=== PATIENT | male | born 1970 | race Caucasian/White ===

== ENCOUNTER 2024-09-15 12:22 | Day surgery (SDC) | payer MEDICARE, SELFPAY ==
[2024-09-15] VITALS (11 sets, daily range): BP systolic 130–180; BP diastolic 87–116; PULSE 44–73; TEMP 36.3–36.6; O2SAT 13–100; BMI 32.5
--- NOTE | 2024-09-15 12:50 | ECG_ITS ---
The [facility] Test Date: 2024-09-15 Pat Name: DIVYA WATSON Department: Room: - Gender: Male [employer] Operator: : 1970 Requested By: Order Number: [id number] Reading MD: HAMLET RECIO Measurements Intervals [place] Rate: 47 P: 61 AL: 201 QRS: 22 QRSD: 91 T: 58 QT: 468 QTc: 417 Interpretive Statements SINUS BRADYCARDIA No previous ECG available for comparison Electronically Signed On 09-15-2024 18:03:00 EDT by HAMLET RECIO
[2024-09-15] MEDS: LACTATED RINGER'S SOLUTION 1,000 ML 50 ML IV (13:28)
[2024-09-15] MEDS: CEFAZOLIN SODIUM/DEXTROSE,ISO 2 GM/50 ML PIGGYBACK IV (14:26)
[2024-09-15] MEDS: IOHEXOL 240 MG/ML - 50 ML VIAL INJ (15:48)
--- NOTE | 2024-09-15 15:59 | XR_ITS ---
The [address] [address] Patient Name: DIVYA WATSON MRN: [id number] date: 1970 Sex: M Assigned Patient Location: [facility] Current Patient Location: Accession/Order Number: [id number] Exam Date: 09/15/2024 14:40 Report Date: 09/19/2024 07:48 At the request of: PRESTON CAPELLAN Procedure: XR urethrogram retrograde EXAM: XR urethrogram retrograde HISTORY: Left renal stone COMPARISON: None. TECHNIQUE: Intraoperative spot fluoroscopic radiograph. FINDINGS: 3 intraoperative spot fluoroscopic images demonstrate retrograde filling of the left ureter and upper collecting system; no appreciable obstructing stone or lesion. Filling defect favoring a stone within an inferior pole calyx. Subsequent placement of a left ureteral stent. XR/XR urethrogram retrograde IMPRESSION: 1. Left ureteral stent placement. Electronically authenticated by: LATRELL VALDIVIA Date: 09/19/2024 07:48
--- NOTE | 2024-09-15 16:03 | PM.URSON ---
Urology Surgery Operative Note Operative Note Procedure Date: 09/15/24 Time Out Performed: yes Pre-op Diagnosis: Left kidney stone Post-op Diagnosis: same as pre-op Procedures performed: Cystoscopy, left retrograde pyelogram, ureteroscopy laser lithotripsy/stone extraction, stent placement Anesthesia: General-LMA (Dr. Gómez ) Primary Surgeon: Frances Rasheed Complications: none Estimated blood loss (mL): 0 Findings: Meatal stenosis requiring gentle manipulation/dilation with cystoscope. Mild bilobar prostatomegaly with elevated bladder neck. L RPG- filling defect at renal pelvis, lower infundibulum, narrow bifid renal pelvis without hydro, mild narrowing at UPJ 1 cm. No hydronephrosis, extravasation or other filling defects at end of case Crystalized 15 x 7 mm renal pelvis/lower calyx stone underwent uncomplicated laser lithotripsy and stone extraction. Remainder of smaller crystals/fragments were dusted Specimens: left kidney stone Drains: 6Fr x 26 cm JJ left ureteral stent on string Incision: none Indications for Procedures: 54 year old male with a history of stones presented in clinic with a new 15x7 mm left renal pelvis stone and severe pain for the past few months. After discussion of risks/benefits of management options, he elected to proceed with cystoscopy, left retrograde pyelogram, ureteroscopy with laser lithotripsy/stone extraction, possible ureteral stent placement under general anesthesia. Risks were discussed including but not limited to bleeding, pain, infection, damage to surrounding structures, inability to treat the stone/place a stent, and need for additional procedures. The patient understands the stent is not permanent and needs to be removed or exchanged within 3 months to prevent encrustation, infection, invasive procedures and/or permanent renal damage. Detailed description of Procedure: After informed consent was obtained, the patient was brought to the operating room and transferred onto the operating table in supine position. Sequential compression devices were placed on bilateral lower extremities. The patient received the appropriate dose of preoperative IV antibiotics and general anesthesia LMA was induced. They were positioned in modified dorsolithotomy with the appropriate pressure points padded, prepped, and draped in the usual sterile fashion for this procedure. An operative safety timeout was performed confirming the patient's identity, laterality and procedure, and all present agreed to proceed. I began by inserting a 22 [place]an rigid cystoscope with 30 degree lens into the patient's urethra and bladder with mild difficulty due to meatal stenosis. There were no bladder tumors, lesions, stones or foreign bodies. Bilateral ureteral orifices were orthotopic and patent. I turned my attention to the left ureteral orifice and a 6- [place]an open-ended catheter was inserted into the ureteral orifice and dilute contrast was injected for retrograde pyelogram with findings as above. A Sensor wire was inserted into the ureter up to the renal pelvis confirmed on fluoroscopy. An 11/13 [place]an by 36 cm ureteral access sheath was inserted over the wire in a sequential fashion to gain access to the renal pelvis. Next a flexible ureteroscope was inserted through the sheath and advanced to the renal pelvis under fluoroscopic guidance until the stone was reached. A 275 ?m thulium laser fiber was used to break the stone into fragments which were then removed with a 1.8 tipless nitinol basket. The remainder of fragments were dusted into tiny sub-mm pieces. After the stone was adequately treated, a full renoscopy was performed confirming no significant residual stones or fragments remained. Contrast was injected to assist with mapping for the renoscopy. The wire was reinserted and a pull down ureteroscopy was performed confirming no stones remained in the ureter. A 6Fr x 26cm JJ ureteral stent on a string was advanced over the wire, noting adequate curl in the renal pelvis and bladder on fluoroscopic visualization. The bladder was drained via cystoscope. A final Xray confirmed adequate position of stent. String secured to ventral phallus with Tegaderm. The stones were sent for pathology. The patient tolerated the procedure well without complication. The patient was awakened from anesthesia and sent to PACU in stable condition. Plan: Discharge home with stent pain medications. Remove stent by the string at home in 5 days. Follow up in 2 months with renal US just prior to appt. Other Provider present: No Post Operative care instructions: See discharge instructions Attending Doc Confirm Attending Attestation: Yes
[2024-09-15] MEDS: KETOROLAC TROMETHAMINE 30 MG/ML VIAL IVP (16:28)
--- NOTE | 2024-09-15 16:40 | NUTR.NU ---
1630- Patient incontinent of large amount of urine. Patient upto BR per request.
--- NOTE | 2024-09-15 17:32 | PC.NURSE ---
1700- Patient c/o pain but refuses any pain medications. Patient c/o left lower quadrant pain and feeling like he needs to void. Reminded patient that it is a common feeling after a ureteral stent placement. Bladder scan completed. 37cc of urine noted on bladder scan. Patient tolerated scan well.
== END 2024-09-15 17:30 | disposition home or self-care (01) ==
PROVIDERS: PCP Family Medicine; Visit Provider Urology
PROC: (CPT 52356; principal; 2024-09-15 13:50)
DX: N20.0 Calculus of kidney (principal); N35.911 Unspecified urethral stricture, male, meatal; N40.1 Benign prostatic hyperplasia with lower urinary tract symptoms; R39.15 Urgency of urination; R35.0 Frequency of micturition; R35.1 Nocturia; R31.0 Gross hematuria; R10.9 Unspecified abdominal pain; F17.210 Nicotine dependence, cigarettes, uncomplicated; I10 Essential (primary) hypertension; K21.9 Gastro-esophageal reflux disease without esophagitis
CPT/HCPCS: 52356; 51798; 74420; 82365; 93005; 99999; J0690; J1100; J1885; J2250; J2405; J2704; Q9966